=== PATIENT | male | born 1985 | race Hispanic/Latino ===

== ENCOUNTER 2017-07-29 10:19 | Emergency (ER) | payer SELFPAY ==
[~2017-07-29] VITALS: Ht 165.1 cm; Wt 55.8 kg
[~2017-07-29 10:19] MED LIST: LEVAQUIN750 MG PO; SULFACET SOD10 % OU
[2017-07-29] MEDS ORDERED: RANITIDINE150 M1 PO (11:07)
[2017-07-29 11:28] LABS: URINE BILIRUBIN - DIPSTICK NEGATIVE (NEGATIVE); URINE BLOOD DIPSTICK NEGATIVE (NEGATIVE); URINE COLOR YELLOW; URINE GLUCOSE - DIPSTICK NEGATIVE (NEGATIVE); URINE KETONE NEGATIVE (NEGATIVE); URINE LEUK ESTERASE NEGATIVE (NEGATIVE); URINE NITRITE - DIPSTICK NEGATIVE (Negative); URINE PROTEIN - DIPSTICK NEGATIVE (NEG-TRACE); URINE UROBILINOGEN - DIPSTICK 0.2 E.U./dL (0.2)
[2017-07-29 11:30] LABS: URINE CLARITY CLEAR
[2017-07-29 11:34] LABS: HEMATOCRIT 50.4 % (39.0-50.0); HEMOGLOBIN 17.8 g/dl (14.0-18.0); IMMATURE GRANULOCYTES 0.2 % (0.0-1.0); MEAN CELL VOLUME 84.4 fL CALC (80.0-100.0); MEAN CORPUSCULAR HGB 29.8 pG CALC (26.0-32.0); MEAN CORPUSCULAR HGB CONC 35.3 g/L CALC (32.0-36.0); NEUT# 2.99 thou/uL (1.82-7.42); RED BLOOD COUNT 5.97 mill/uL (4.70-6.10); RED CELL DISTRI WIDTH 12.7 % (11.5-15.5)
[2017-07-29 11:58] LABS: ALBUMIN 4.8 g/dL (3.2-5.0); ALKALINE PHOSPHATASE 90 u/l (38-126); ANION GAP 20 (6-22 (CALC)); BILIRUBIN, TOTAL 0.8 mg/dL (0.0-1.4); BUN 15 mg/dL (9-20); BUN/CREATININE RATIO 14 (12-20 (CALC)); CARBON DIOXIDE 26 mmol/l (22-30); CHLORIDE 103 mmol/l (95-108); CREATININE 1.1 mg/dL (0.7-1.3); GFR > 60 ML/MIN (>=60 (CALC)); GFR FOR AFR.AMER. > 60 ML/MIN (>=60 (CALC)); LIPASE 90 u/l (23-300); POTASSIUM 4.2 mmol/l (3.5-5.1); SGOT/AST 46 u/l (17-59); SGPT/ALT 55 u/l (21-72); SODIUM 144 mmol/l (137-146); TOTAL PROTEIN 7.9 g/dL (6.3-8.2)
[2017-07-29] MEDS ORDERED: RANITIDINE 150150 MG PO (13:31)
[2017-07-29 13:48] VITALS: BP 108/63
== END 2017-07-29 13:48 | disposition home or self-care (01) | DRG 392 ==
LOC: ED 10:19
PROVIDERS: Family Medicine
DX: R10.31 Right lower quadrant pain (principal)
CPT/HCPCS: Q9967

== ENCOUNTER 2022-11-14 08:57 | Day surgery (SDC) | payer OTHER ==
[~2022-11-14] VITALS: Ht 165.1 cm; Wt 68.0 kg
[~2022-11-14 08:57] MED LIST changes: +ACID REDUCER PO; +RANITIDINE 150150 MG PO; +RANITIDINE150 M1 PO
[2022-11-14 10:53] VITALS: BP 114/80
== END 2022-11-14 11:30 | disposition home or self-care (01) | DRG 392 ==
LOC: ORM 08:57
PROVIDERS: ATTEND Surgery
PROC: 0DBF8ZX Excision of Right Large Intestine, Via Natural or Artificial Opening Endoscopic, Diagnostic (ICD-10-PCS; principal; 2022-11-14)
PROC: 0DB98ZX Excision of Duodenum, Via Natural or Artificial Opening Endoscopic, Diagnostic (ICD-10-PCS; 2022-11-14)
DX: K29.80 Duodenitis without bleeding (principal); K44.9 Diaphragmatic hernia without obstruction or gangrene; K63.5 Polyp of colon; K64.8 Other hemorrhoids

== ENCOUNTER 2024-06-23 07:01 | Day surgery (SDC) | payer SELFPAY ==
[~2024-06-23] VITALS: Ht 165.1 cm; Wt 54.4 kg
[~2024-06-23 07:01] MED LIST changes: +NAPROXEN500 MG PO; +OMEPRAZOLE DR40 MG PO; +OMEPRAZOLE20 MG PO; +PROBIOTIC250 MG PO
[2024-06-23] MEDS ORDERED: FAMOTIDINE 10MG/ML 2ML SDV IV ONE (07:05)
[2024-06-23] MEDS ORDERED: LACTATED RINGER'S 1,000 ML IV ONE (07:05)
[2024-06-23 08:43] VITALS: BP 105/74
[2024-06-23] MEDS ORDERED: PROPOFOL 500 MG/50 ML VIAL IV ONE (15:56)
[2024-06-23] MEDS ORDERED: LIDOCAINE HCL 2% 2ML SDV IV ONE (15:56)
[2024-06-23] MEDS ORDERED: GLYCOPYRROLATE 0.2 MG/ML IV ONE (15:56)
== END 2024-06-23 09:15 | disposition home or self-care (01) | DRG 392 ==
LOC: ORM 07:01
PROVIDERS: ATTEND Surgery
PROC: 0DB98ZX Excision of Duodenum, Via Natural or Artificial Opening Endoscopic, Diagnostic (ICD-10-PCS; principal; 2024-06-23)
PROC: 0DB78ZX Excision of Stomach, Pylorus, Via Natural or Artificial Opening Endoscopic, Diagnostic (ICD-10-PCS; 2024-06-23)
DX: K21.9 Gastro-esophageal reflux disease without esophagitis (principal); K29.80 Duodenitis without bleeding; Q40.8 Other specified congenital malformations of upper alimentary tract; K31.89 Other diseases of stomach and duodenum; Z86.19 Personal history of other infectious and parasitic diseases
CPT/HCPCS: J1596